=== PATIENT | female | born 1995 | race Caucasian/White ===

== ENCOUNTER 2017-02-16 14:12 | Emergency (ER) | payer OTHER ==
[~2017-02-16 14:12] MED LIST: BENTYL20 M1 PO; CYCLOBENZAPRINE10 M1 PO; IBUPROFEN600 M1 PO; TRAMADOL HCL50 M1 PO; ZOFRAN ODT4 M1 PO
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
[2017-02-16 15:09] LABS: ABSOLUTE BASOPHIL COUNT 0.1 /CUMM (0.0-0.2); ABSOLUTE EOSINOPHIL COUNT 0.2 /CUMM (0.0-0.7); ABSOLUTE GRANULOCYTE CT 5.4 /CUMM (1.4-6.5); ABSOLUTE LYMPH COUNT 2.5 /CUMM (1.2-3.4); ABSOLUTE MONOCYTE COUNT 0.2 /CUMM (0.10-0.60); BASOPHIL % 1.6 % (0.0-2.0); EOSINOPHIL % 2.1 % (0-5); GRANULOCYTE % 63.9 % (42.2-75.2); HEMATOCRIT 42.8 % (37-47); MEAN CORPUSCULAR HGB 29.1 PG (27.0-31.0); MEAN CORPUSCULAR HGB CONC 33.5 G/DL (33.0-37.0); MEAN CORPUSCULAR VOLUME 86.8 FL (81.0-99.0); MEAN PLATELET VOLUME 8.9 FL (7.4-10.4); PLATELET COUNT 211 /CUMM (130-400); RBC DISTRIBUTION WIDTH 13.9 % (11.5-14.5); RED BLOOD CELL CT 4.93 /CUMM (4.20-5.40); WHITE BLOOD CELL COUNT 8.4 /CUMM (4.8-10.8)
--- NOTE | 2017-02-16 16:18 | RADIOLOGY REPORT ---
EXAMINATION: PELVIS AND RIGHT HIP X-RAY CLINICAL INFORMATION: Right hip pain COMPARISON: Previous right hip x-ray May [address] of the abdomen and pelvis October 2016 TECHNIQUE: One view of the pelvis and 2 views of the right hip FINDINGS: There is right hip dislocation. The direction of displacement of the femoral head with respect to the acetabulum is difficult to ascertain. No fracture is seen. Bones of the pelvis are unremarkable. The left hip is normal appearing. IMPRESSION: Right hip dislocation.
[2017-02-16 18:05] VITALS: BP 127/75
--- NOTE | 2017-02-16 18:26 | RADIOLOGY REPORT ---
EXAMINATION: XR HIP, RIGHT CLINICAL INFORMATION: Status post reduction COMPARISON: X-ray performed earlier at 3:37 PM on 02/16/2017 TECHNIQUE: Two views of the right hip. FINDINGS: Normal bony mineralization. No evidence of acute fracture or dislocation. IMPRESSION: Interval reduction of previously seen right hip dislocation..
[2017-02-16] MEDS ORDERED: IBUPROFEN600 M1 PO (18:43)
== END 2017-02-16 19:08 ==
LOC: ERH 14:12
PROVIDERS: Emergency Medicine
DX: S73.001A Unspecified subluxation of right hip, initial encounter (principal); W06.XXXA Fall from bed, initial encounter; Y92.9 Unspecified place or not applicable; Y93.9 Activity, unspecified
CPT/HCPCS: 72170; 73502-RT; 73552; 96374; 96375; 96376; J1885; J2310

== ENCOUNTER 2017-03-18 17:16 | Emergency (ER) | payer OTHER ==
[2017-03-18 17:20] VITALS: BP 118/65
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
== END 2017-03-18 17:53 ==
LOC: ERH 17:16
DX: F10.129 Alcohol abuse with intoxication, unspecified (principal)

== ENCOUNTER 2017-05-20 07:08 | Emergency (ER) | payer OTHER ==
[~2017-05-20] VITALS: Ht 165.1 cm; Wt 54.4 kg
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
[2017-05-20] MEDS ORDERED: METHADONE10 MG/1 M2 PO (08:02)
[2017-05-20] MEDS ORDERED: ZOFRAN ODT4 M1 SL (08:56)
[2017-05-20 09:01] VITALS: BP 120/80
== END 2017-05-20 09:01 ==
LOC: ERH 07:08
DX: F41.9 Anxiety disorder, unspecified (principal)
CPT/HCPCS: 80307; 81001; 81025

== ENCOUNTER 2018-03-18 12:14 | Emergency (ER) | payer OTHER ==
[~2018-03-18] VITALS: Ht 167.6 cm; Wt 90.7 kg
[~2018-03-18 12:14] MED LIST changes: +METHADONE10 MG/1 M2 PO; +ZOFRAN ODT4 M1 SL
[2018-03-18 12:23] VITALS: BP 136/85
== END 2018-03-18 14:10 | disposition admitted as inpatient to this hospital (09) ==
LOC: ERH 12:14
DX: M25.512 Pain in left shoulder (principal); V89.2XXA Person injured in unspecified motor-vehicle accident, traffic, initial encounter

== ENCOUNTER 2018-06-15 11:35 | Emergency (ER) | payer OTHER ==
[~2018-06-15] VITALS: Ht 167.6 cm; Wt 81.6 kg
--- NOTE | 2018-06-15 13:24 | ED GENERAL ADULT ---
See Addendum History of Present Illness General Chief Complaint: ETOH/Drug Related Complaint Stated Complaint: BIBA FOR DETOX FROM JUJU Source: patient Exam Limitations: not alert/orientated, clinical condition, intoxication Vital Signs & Intake/Output Vital Signs & Intake/Output Vital Signs Date Time Temp Pulse Resp B/P B/P Pulse O2 O2 Flow FiO2 Mean Ox Delivery Rate 06/15 1722 98.2 114 16 122/77 99 Room Air 06/15 1706 Room Air 06/15 1454 98.7 114 20 114/64 100 Room Air 06/15 1211 Room Air 06/15 1150 98.2 120 20 140/60 100 Room Air Allergies Coded Allergies: Penicillins (HIVES 05/25/16) Reconcile Medications Fluoxetine HCl 20 MG TABLET 1 TAB PO QAM MENTAL HEALTH (Reported) Gabapentin 300 MG CAPSULE 3 CAP PO TID MENTAL HEALTH (Reported) Medroxyprogesterone Acetate (Provera) 10 MG TABLET 1 TAB PO DAILY FOR 7 DAYS - GYNECOLOGICAL (Reported) Norethindrone-E.estradiol-Iron (Junel Fe 1 MG-20 Mcg Tablet) 1 MG-20 MCG (21)/75 MG (7) TABLET 1 TAB PO DAILY GYENCOLOGICAL (Reported) Quetiapine Fumarate 100 MG TABLET 1 TAB PO DAILY MENTAL HEALTH (Reported) Quetiapine Fumarate 200 MG TABLET 1 TAB PO BID MENTAL HEALTH (Reported) Triage Note: DIANNE S/P "USING JUJU LAST NIGHT" PT REPORTS SHE WAS "FOUND IN A PUDDLE" PRIOR TO ARRIVAL. DENIES PAIN, DENIES SI/HI. PT DOES NOT WANT DETOX. AWAKE/ALERT WITH EASY WOB. EASILY REDIRECTABLE. Triage Nurses Notes Reviewed? yes : No Patient currently breastfeeds: No HPI: Patient is a 22-year-old female who presented altered today stating that she "took Juju last night" and was looking for detox from that medication. Upon our initial encounter she is disoriented, requesting to leave, denying any physical complaints. At the end of our interview, she stands up and insists on leaving. She was unable to walk without ataxia, and the presence represents an unsafe discharge. She was not redirectable, and completely disoriented to her surroundings and her situation. She has dilated pupils and I feel that she is still clinically intoxicated with unknown substances. Unfortunately she required security assistance back into her bed, and when she developed aggressive behavior putting herself and others around her in danger, I administered calming medications and placed her in 4-point locking restraints. Past History Travel History Traveled to [place] past 21 day No Medical History Any Pertinent Medical History? see below for history Neurological: NONE EENT: NONE Cardiovascular: NONE Respiratory: NONE Gastrointestinal: NONE Hepatic: NONE Renal: NONE Musculoskeletal: NONE Psychiatric: anxiety, bipolar disease Endocrine: NONE Blood Disorders: NONE Cancer(s): NONE Surgical History Surgical History: tonsillectomy Psychosocial History What is your primary language Serbian Tobacco Use: Current Daily Use Daily Tobacco Use Amount/Type: => 5 Cigarettes daily Family History Hx Contributory? Yes Review of Systems Review of Systems Constitutional: Reports: see HPI. Comments Other than the features mentioned in history of present illness above, a detailed review of systems was not possible secondary to the patient's delirium and intoxication Physical Exam Physical Exam General Appearance: anxious, intoxicated Comments: HEENT: Inspection of the head reveals a normocephalic cranium with no signs of trauma. Ophtho: Dilated pupils Neck: No signs of trauma or asymmetry to the neck. Respiratory: The patient exhibits no signs of labored breathing. Cardiac: Non-tachycardic. GI: No gross abdominal distention. : Deferred Neuro: Focused neurologic examination was attempted, but secondary to the patient's suspected intoxication, it was extremely limited. Features that were obtainable included dilated and equal pupils and a lack of gross focal motor abnormality on patient's limited passive motion. She is markedly ataxic on ambulation and not safe to care for herself at present. Behavioral: Aggressive, uncooperative, and not amenable to redirection. Dermatologic: Tract valenzuela to the bilateral antecubital fossae. The patient has multiple ecchymoses over her extremities and body in multiple stages of healing. Core Measures ACS in differential dx? No CVA/TIA Diagnosis: No Sepsis Present: No Sepsis Focused Exam Completed? No Progress Differential Diagnoses I considered the following diagnoses in my evaluation of the patient: NMDA receptor antagonist intoxication, alcohol intoxication, polypharmacy abuse, delirium, psychiatric disorder, multiple other possibilities. Plan of Care: Orders Procedure Date/time Status Regular Diet 06/15 D Active LACTIC ACID 06/15 2012 Active LACTIC ACID 06/15 1712 Complete Restraint- Behavioral (Renew) 06/15 1513 Active SERUM OSMOLALITY 06/15 1434 Complete Restraint- Behavioral (Order) 06/15 1316 Active Continuous Observation Monitor 06/15 1316 Active URINE DRUGS OF ABUSE 06/15 1316 Complete URINE 06/15 1316 Complete URINALYSIS 06/15 1316 Complete ACETOMINOPHEN 06/15 1316 Complete SALICYLATE 06/15 1316 Complete ETHANOL 06/15 1316 Complete COMPREHENSIVE METABOLIC PANEL 06/15 1316 Complete CBC WITHOUT DIFFERENTIAL 06/15 1316 Complete EKG 06/15 1316 Active Laboratory Tests 06/15/18 1734: Urine Opiates Screen < 100, Methadone Screen > 735 H, Barbiturate Screen < 60, Ur Phencyclidine Scrn 13.50, Amphetamines Screen 158, U Benzodiazepines Scrn < 85, Urine Cocaine Screen < 50, Urine Cannabis Screen > 80.00 H, Urine Color YEL , Urine Clarity CLEAR, Urine pH 6.0, Ur Specific Mobile >= 1.030, Urine Protein TRACE H, Urine Ketones >=80, Urine Nitrite NEG, Urine Bilirubin NEG@ICTO, Urine Urobilinogen 0.2, Ur Leukocyte Esterase NEG, Ur Microscopic SEDIMENT EXAMINED, Urine RBC RARE, Urine WBC 1-3 H, Ur Epithelial Cells RARE, Urine Bacteria RARE H, Urine Mucus FEW, Urine Hemoglobin NEG, Urine Glucose NEG, Urine Test NEGATIVE 06/15/18 1719: Lactic Acid < 0.5 L 06/15/18 1434: Anion Gap 23 H, Estimated GFR > 60, BUN/Creatinine Ratio 14.5, Glucose 66, Serum Osmolality 290, Calcium 9.6, Total Bilirubin 0.6, AST 52 H, ALT 47, Alkaline Phosphatase 114, Total Protein 7.8, Albumin 4.8, Globulin 3.0, Albumin/ Globulin Ratio 1.6, CBC w Diff NO MAN DIFF REQ, RBC 5.18, MCV 70.7 L, MCH 22.5 L, MCHC 31.9 L, RDW 22.0 H, MPV 8.6, Gran % 76.1 H, Lymphocytes % 16.0 L, Monocytes % 6.7, Eosinophils % 0.4, Basophils % 0.8, Absolute Granulocytes 10.0 H, Absolute Lymphocytes 2.1, Absolute Monocytes 0.9 H, Absolute Eosinophils 0.1 , Absolute Basophils 0.1, Salicylates < 1.0, Acetaminophen < 10.0 L, Serum Alcohol < 10.0 Initial ED EKG: normal intervals, no ST T wave changes Hand-Off Endorsed To: Rosalino Shaver MD Comments: Patient has sobered up somewhat but still is unsafe for discharge. Laboratory studies largely unremarkable. I discussed extensively with her mother the possibility of rehabilitation and detox, but her mother understands that she needs to want this herself. She cannot be forced. She'll be reassessed in the morning and offered crisis evaluation, but if she refuses she will most likely be discharged. Case signed out to the overnight physician at time of shift change. Departure Departure Disposition: STILL A PATIENT Condition: Stable Clinical Impression Primary Impression: Substance abuse Referrals: Patient Has No Primary Care Dr (PCP/Family) Departure Forms: Customer Survey General Discharge Information Critical Care Note Critical Care Note Critical Care Time: non-applicable
[2018-06-15 14:42] LABS: ABSOLUTE BASOPHIL COUNT 0.1 /CUMM (0.0-0.2); ABSOLUTE EOSINOPHIL COUNT 0.1 /CUMM (0.0-0.7); ABSOLUTE LYMPH COUNT 2.1 /CUMM (1.2-3.4); ABSOLUTE MONOCYTE COUNT 0.9 /CUMM (0.10-0.60); BASOPHIL % 0.8 % (0.0-2.0); EOSINOPHIL % 0.4 % (0-5); GRANULOCYTE % 76.1 % (42.2-75.2); HEMATOCRIT 36.6 % (37-47); MEAN CORPUSCULAR HGB 22.5 PG (27.0-31.0); MEAN CORPUSCULAR HGB CONC 31.9 G/DL (33.0-37.0); MEAN CORPUSCULAR VOLUME 70.7 FL (81.0-99.0); MEAN PLATELET VOLUME 8.6 FL (7.4-10.4); PLATELET COUNT 267 /CUMM (130-400); RED BLOOD CELL CT 5.18 /CUMM (4.20-5.40); WHITE BLOOD CELL COUNT 13.1 /CUMM (4.8-10.8)
[2018-06-15] MEDS ORDERED: GABAPENTIN300 M2 PO (18:00)
[2018-06-15] MEDS ORDERED: FLUOXETINE HCL20 M3 PO (18:00)
[2018-06-15] MEDS ORDERED: QUETIAPINE FUM200 M1 PO (18:01)
[2018-06-15] MEDS ORDERED: QUETIAPINE FUM100 M1 PO (18:01)
[2018-06-15] MEDS ORDERED: JUNEL FE 1 MG-1 EACH PO (18:03)
[2018-06-15] MEDS ORDERED: PROVERA10 MG PO (18:06)
--- NOTE | 2018-06-15 18:52 | RADIOLOGY REPORT ---
EXAMINATION: XR ANKLE, LEFT CLINICAL INFORMATION: Pain. COMPARISON: None. TECHNIQUE: AP, lateral, and mortise views of the left ankle. FINDINGS: Soft tissue swelling overlies the lateral malleolus on the AP view. No fracture. Alignment is anatomic. Joint spaces are maintained. No joint effusion. IMPRESSION: Soft tissue swelling overlies the lateral malleolus. No radiographic evidence of acute displaced fracture or subluxation.
[2018-06-16 07:36] VITALS: BP 123/88
== END 2018-06-16 07:37 ==
LOC: ERH 11:35
PROVIDERS: Student in an Organized Health Care Education/Training Program
DX: F15.10 Other stimulant abuse, uncomplicated (principal)
CPT/HCPCS: 73610-LT; 80307; 81001; 81025; 93005; 93010; 96372; G0480; J1630